=== PATIENT | male | born 1980 | race Hispanic/Latino ===

== ENCOUNTER 2024-11-19 23:46 | Emergency (ER) | payer OTHER ==
[~2024-11-19] VITALS: Ht 180.3 cm; Wt 97.1 kg
[2024-11-20] MEDS: LIDOCAINE HCL 1% 20 ML VIAL INJ STA (00:24)
--- NOTE | 2024-11-20 01:25 | ERN ---
ED Note History of Present Illness Stated Complaint: C/O LACERATION TO HANDS; MEDICAL CLEARANCE Chief Complaint: Laceration/Avulsion Time Seen by MD: 23:52 Time Seen by Midlevel: 23:58 Dictation: 44-year-old male with no medical history [facility]. Patient states he fell on gravel sustained lacerations to bilateral hands. Denies any head injury, denies any LOC. Denies any blood thinners. Patient does not know if he is up-to-date with his tetanus vacci [place]. This generally complaints are pain to the laceration areas of the hands. Allergies: Coded Allergies: Penicillins (Unverified Allergy, Unknown, 11/19/24) Past Medical History Past Medical History: No Pertinent History Surgical History: None Review of System Dictation Constitutional: Negative for fever,chills, and weight loss Eyes: Negative for injury, pain,redness, and discharge ENT: Negative for injury,pain or swelling Cardiovascular: Negative for chest pain, palpitations, and edema Respiratory: Negative for shortness of breath, cough, and wheezing, Abdomen/GI: Negative for abdominal pain, nausea, vomiting, diarrhea, and constipation Back: Negative for injury and pain : Negative for injury, bleeding and discharge MS/Extremity: Negative for injury and deformity Skin: Negative for rash, and discoloration, bilateral hand laceration Neuro: Negative for headache, weakness, numbness, tingling, and seizure Psych: Negative for suicide ideation, homicidal ideation, and hallucinations Review of Systems: was completed Initial Vital Sign VS Vital Signs Date Time Temp Pulse Resp B/P (MAP) Pulse Ox O2 Delivery O2 Flow Rate FiO2 11/19/24 23:47 99.1 85 20 124/87 97 Room Air 11/20/24 00:29 0 21 Physical Exam Dictation General: awake, alert, NAD Head/Face: Normocephalic, atraumatic Eyes: PERRL, EOMI, vision at baseline ENT: oral cavity clear, TMs clear, no signs of infection Neck: Trachea midline, supple, no nuchal rigidity Cardiovascular: RRR, normal S1/S2, No MRGs, no JVD Respiratory: CTAB, no respiratory distress, No rales or wheezes Abdomen: Soft, non-tender, non-distended, normal bowel sounds, no guarding or rebound. Skin: Warm, dry, normal turgor, no rash. There is a3 cm irregular laceration to the left base of the 5th digit, full range of motion, no suspicion for tendon or ligament involvement. There is a cm laceration to the right base of the 3rd digit of the hand, full range of motion, no suspicion for tendon or ligament involvement. No active bleeding. MS/Extremity: Pulses equal, no cyanosis, neurovascular intact, FROM Neuro: COAx4, GCS 15, strength 5/5, CN 2-12 intact, normal cerebellar exam, normal gait, Psych: Normal behavior, mood, and affect normal ED Course ED Course Orders Procedure Category Date Status Time Hand 3+Vws Lt RAD 11/20/24 Taken 00:10 Hand 3+Vws Rt RAD 11/20/24 Taken 00:10 Tetanus,Diphtheria PHA 11/20/24 Complete Tox [Adult] (Diphther 00:30 Lidocaine Hcl 1% 20ml PHA 11/20/24 Complete Vial (Lidocaine Hc 00:10 Ketorolac PHA 11/20/24 In Process Tromethamine 15mg/Ml 01:30 Current Medications Medications (Trade) Dose Ordered Sig/Maki Route PRN Reason Start Time Stop Time Status Last Admin Dose Admin Ketorolac Tromethamine (toRADol) 15 mg ONCE ONCE IM 11/20/24 01:30 11/20/24 01:31 11/20/24 01:22 Lidocaine HCl (Lidocaine HCl 1% 20ml Vial) ONCE STAT INJ 11/20/24 00:10 11/20/24 00:12 DC 11/20/24 00:24 Tetanus/ Diphtheria Toxoids Adsorbed (DiphthERIA-teTANUS TOXOID [ADULT]/ DECAVAC) 0.5 ml ONCE ONCE IM 11/20/24 00:30 11/20/24 00:31 DC 11/20/24 00:26 Vital Signs Date Time Temp Pulse Resp B/P (MAP) Pulse Ox O2 Delivery O2 Flow Rate FiO2 11/20/24 00:29 99.0 75 18 135/66 98 Room Air* 0 21 11/19/24 23:47 99.1 85 20 124/87 97 Room Air Medical Decision Making MDM MDM: 44-year-old male with no medical history coming in with [facility] custody for medical clearance. Patient states he fell on gravel sustained lacerations to bilateral hands. Denies any head injury, denies any LOC. Denies any blood thinners. Patient does not know if he is up-to-date with his tetanus vaccination. This generally complaints are pain to the laceration areas of the hands. X-rays were done to evaluate if there was any foreign body including gravel in his soft tissue. Foreign body seen on any of the laceration. Interpreted by myself. See procedure note for lack repair #1. . Discussed with the patient and BP H and at bedside patient needs to return to an ER to remove those sutures in seven to 10 days and I will discharge him with the antibiotics to take at home. Both verbalized understanding, answered all questions. Laceration 2.: Right hand, base of 3rd phalanges, laceration has a about 4 cm. Irregular like a V". We will treat with the ear with a about 5 cc of 1% lidocaine. Irrigated with15 cc of normal saline. No debris noted. Work Single interrupted sutures. Patient tolerated. Differential diagnosis: Laceration, avulsion, tendon involvement, arterial bleed Rationale: Tests considered and ordered secondary to shared decision making include: Previous outside records reviewed: Old ER visits. Risk of complication and/or morbidity or mortality of patient management: None Medications-Per medication reconciliation Need for hospitalization: Patient does not meet criteria for hospitalization. Need for emergency major/minor surgery: No There are no social concerns with this patient. Prescription drug management Prescriptions will include symptomatic care Patient's prior external medical records from other ER visits were reviewed by me as indicated. Prior testing and results from previous visits were reviewed. Prior tests were taken into account with medical decision making and resource utilization, independent historian/historians were used to obtain complete medical history. I independently interpreted the test that were performed, results were reviewed by me and considered findings on radiology if ordered. Medical management and examination interpretation discussions were had by me with other qualified healthcare professionals as indicated for the patient's care. Procedure Wound Location: upper extremity (Left 5th digit) Wound Length (cm): 3 Wound's Depth, Shape: superficial Wound Explored: contaminated Irrigated w/ Saline (ccs): 50 Betadine Prep?: Yes Anesthesia: 1% Lidocaine Volume Anesthetic (ccs): 5 Wound Debrided: moderate Wound Repaired With: sutures Suture Size/Type: 3:0 Number of Sutures: 3 DX & DISP Disposition: Discharge Departure Impression: Primary Impression: Hand laceration Additional Impression: Medical clearance for incarceration Condition: Stable Scripts Clindamycin HCl (Clindamycin HCl) 300 Mg Capsule 1 CAP PO TID for 7 Days, #21 CAP 0 Refills Prov: SHEILA GALLEGOS 11/20/24 Additional Instructions: The lacerations clean and dry. If you notice any drainage or foul odor any signs of infection please return to the emergency room. Complete the course of antibiotics. Return to the hospital in 7-10 days to remove sutures. Referrals: SELF,REFERRAL (PCP) Time of Disposition: 01:28 I have reviewed the case, and I agree with, Diagnosis and Plan SHEILA GALLEGOS Nov 20, 2024 01:25
[2024-11-20] MEDS ORDERED: CLIN-141 PO (01:32)
--- NOTE | 2024-11-20 01:41 | HMCIMG ---
EXAM: CR Left Hand, 3 views. CLINICAL HISTORY: Rule out foreign body. COMPARISON: None provided. FINDINGS: No acute fracture or aggressive appearing osseous lesion. The joint spaces are within normal limits. The soft tissues are unremarkable. No radiopaque foreign body is evident. IMPRESSION: No radiopaque foreign body is evident. No acute bony abnormality. /[place]
[2024-11-20 01:59] VITALS: BP 123/65; PULSE 82; RESP 18; TEMP 99.5; O2SAT 98
--- NOTE | 2024-11-20 02:02 | HMCIMG ---
EXAM: CR Right Hand, 3 views. CLINICAL HISTORY: Rule out foreign body. COMPARISON: None provided. FINDINGS: No acute fracture or aggressive appearing osseous lesion. Old fracture in the fifth metacarpal shaft. The joint spaces are within normal limits. No arthritis. No joint erosion. The soft tissues are unremarkable. No radiopaque foreign body is evident. IMPRESSION: No acute bony abnormality is evident. Old fracture in the fifth metacarpal shaft. No radiopaque foreign body is evident. /[place]
== END 2024-11-20 01:50 | disposition home or self-care (01) ==
LOC: EDH 23:46 → EEVIPCON 23:46 → EDH 11-20 01:50
DX: S61.217A Laceration without foreign body of left little finger without damage to nail, initial encounter (principal); Z88.0 Allergy status to penicillin; W18.39XA Other fall on same level, initial encounter; Y93.89 Activity, other specified; Y92.89 Other specified places as the place of occurrence of the external cause; Y99.8 Other external cause status
CPT/HCPCS: 99284; 90714; 73130 ×2; 90471; 12002; 96372; J1885